=== PATIENT | male | born 2000 | race Caucasian/White ===

== ENCOUNTER 2023-02-07 01:51 | Day surgery (SDC) | payer OTHER ==
[2023-02-07 02:04] VITALS: BMI 31.0
[2023-02-07] MEDS ORDERED: ACETAMINOPHEN 1000 MG/100 ML BAG IVPB ONE ×2 (02:49→12:11)
[2023-02-07] MEDS ORDERED: ACETAMINOPHEN INJECTION 100 ML IVPB ONE ×2 (03:02→12:07)
[2023-02-07 03:25] LABS: BASO % 0.3 % (0-2.0); EOS % 0.4 % (0-4.5); HEMATOCRIT 41.8 % (35.4-49); HEMOGLOBIN 14.5 GM/dL (11.7-16.9); LYMPH % 12.8 % (8-40); MCH 27.7 pg (25.7-33.7); MCHC 34.8 g/dl (32.0-35.9); MEAN CELL VOLUME 79.5 fl (80-96); MEAN PLT VOLUME 7.2 fl (7.5-11.1); NEUT % 80.5 % (42.8-82.8); PLATELET COUNT 290 10^3/uL (134-434); RBC 5.26 M/mm3 (4.00-5.60); RDW 13.7 % (11.9-15.9); WHITE BLOOD COUNT 16.9 K/mm3 (4.0-10.0)
[2023-02-07 03:36] LABS: INR 1.05 (0.83-1.09); PROTHROMBIN TIME (PATIENT) 12.2 SEC (9.7-13.0)
[2023-02-07] MEDS ORDERED: morphine CARPU-JECT 4 MG/1 ML DISP.SYRIN IVPUSH ONE ×2 (03:37→05:49)
[2023-02-07 03:39] LABS: ACTIVATED PTT 31.4 SECONDS (25.2-36.5)
[2023-02-07 03:43] LABS: POTASSIUM 3.7 mmol/L (3.5-5.1)
[2023-02-07 03:46] LABS: BLOOD UREA NITROGEN 10.7 mg/dL (7-18)
[2023-02-07] MEDS ORDERED: ONDANSETRON 4 MG/2 ML VIAL ONE ×2 (03:48→10:11)
[2023-02-07] MEDS ORDERED: ONDANSETRON 4 MG/2 ML VIAL IVPUSH ONE (03:48)
[2023-02-07] MEDS ORDERED: morphine SULFATE 4 MG/ML VIAL ONE ×2 (03:48→05:48)
[2023-02-07 03:49] LABS: CREATININE 0.9 mg/dL (0.55-1.3)
[2023-02-07 03:50] LABS: BILIRUBIN,TOTAL 0.3 mg/dL (0.2-1)
[2023-02-07 03:51] LABS: TOT PROT 7.8 g/dl (6.4-8.2)
[2023-02-07] MEDS ORDERED: PIPERACILLIN/TAZOB 3.375 GM 3.375 GM in DEXTROSE 5%-WATER - 50 ML IVPB ONE (04:26)
[2023-02-07] MEDS ORDERED: PIPERACILLIN/TAZOB 3.375 GM 3.375 GM/50 ML BAG IVPB ONE (05:26)
[2023-02-07] MEDS ORDERED: LACTATED RINGERS SOLUTION 1,000 ML/1,000 ML INFUS.BAG IV SCH ×3 (07:45→11:53)
[2023-02-07] MEDS ORDERED: BUPIVACAINE HCL/PF 0.25% (2.5MG/ML) 10 ML VIAL ONE (09:27)
[2023-02-07] MEDS ORDERED: AMPICILLIN NA/SULBACTAM NA 3 GM VIAL ONE (09:35)
[2023-02-07] MEDS ORDERED: AMPICILLIN NA/SULBACTAM NA 3 GM in SODIUM CHLORIDE 100 ML IVPB SCH (10:00)
[2023-02-07] MEDS ORDERED: PROPOFOL 20 ML ONE (10:11)
[2023-02-07] MEDS ORDERED: ROCURONIUM BROMIDE 50 MG/5 ML SYRINGE ONE (10:11)
[2023-02-07] MEDS ORDERED: SUCCINYLCHOLINE CHLORIDE 200 MG/10 ML SYRINGE ONE (10:11)
[2023-02-07] MEDS ORDERED: KETOROLAC TROMETHAMINE 30 MG/1 ML VIAL ONE ×2 (10:11→11:38)
[2023-02-07] MEDS ORDERED: LIDOCAINE HCL/PF 2% SDV 5ML VIAL ONE (10:11)
[2023-02-07] MEDS ORDERED: DEXAMETHASONE SOD PHOSPHATE 4 MG/1 ML VIAL ONE (10:11)
[2023-02-07] MEDS ORDERED: MIDAZOLAM HCL 2 MG/2 ML SINGLE DOSE VIAL ONE (10:12)
[2023-02-07] MEDS ORDERED: BUPIVACAINE HCL/PF 0.25% (2.5MG/ML) 10 ML VIAL IJ ONE (11:13)
[2023-02-07] MEDS ORDERED: NEOSTIGMINE METHYLSULFATE 0.5 MG/1 ML - 10 ML MDV ONE (11:37)
[2023-02-07] MEDS ORDERED: GLYCOPYRROLATE 0.2 MG/1 ML VIAL ONE (11:38)
[2023-02-07] MEDS ORDERED: oxyCODONE HCL 5 MG TABLET PO PRN ×2 (11:53→11:54)
[2023-02-07] MEDS ORDERED: LACTATED RINGERS SOLUTION 1,000 ML IV SCH (12:15)
[2023-02-07] MEDS ORDERED: ONDANSETRON 4 MG/2 ML VIAL IVPUSH PRN (12:15)
[2023-02-07] MEDS ORDERED: ACETAMINOPHEN 1000 MG/100 ML BAG IVPB SCH (12:30)
[2023-02-07 15:20] VITALS: RESP 18
[2023-02-08] MEDS ORDERED: ACETAMINOPHEN 1000 MG/100 ML BAG IVPB ONE (09:12)
[2023-02-08] MEDS ORDERED: oxyCODONE HCL 5 MG TABLET PO PRN ×2 (09:14)
[2023-02-08 09:49] LABS: BASO % 0.3 % (0-2.0); EOS % 0.1 % (0-4.5); HEMATOCRIT 42.9 % (35.4-49); HEMOGLOBIN 14.3 GM/dL (11.7-16.9); LYMPH % 22.8 % (8-40); MCH 27.4 pg (25.7-33.7); MCHC 33.4 g/dl (32.0-35.9); MEAN PLT VOLUME 7.5 fl (7.5-11.1); MONO % 6.8 % (3.8-10.2); PLATELET COUNT 333 10^3/uL (134-434); RBC 5.23 M/mm3 (4.00-5.60); RDW 13.8 % (11.9-15.9); WHITE BLOOD COUNT 14.5 K/mm3 (4.0-10.0)
[2023-02-08 10:02] LABS: POTASSIUM 3.8 mmol/L (3.5-5.1)
[2023-02-08 10:07] LABS: BLOOD UREA NITROGEN 10.7 mg/dL (7-18); CALCIUM 9.5 mg/dL (8.5-10.1)
[2023-02-08] MEDS ORDERED: ACETAMINOPHEN 325 MG TABLET (FP) PO PRN (14:00)
[2023-02-08 14:42] VITALS: BP 110/86; PULSE 97; TEMP 98.2
== END 2023-02-08 15:33 | disposition home or self-care (01) ==
LOC: JER 01:51 → INTOOBSV 06:12 → JERBED 06:12 → UNDOADMOB 06:12 → JERBED 09:02 → JASUSAT 10:05 → SUATTDRO 10:05 → J5S 13:59 → JASUSAT 02-08 15:33
PROVIDERS: ATTEND Internal Medicine
PROC: 0DTJ4ZZ Resection of Appendix, Percutaneous Endoscopic Approach (ICD-10-PCS; principal; 2023-02-07 11:00)
DX: K35.80 Unspecified acute appendicitis (principal)
CPT/HCPCS: 36415; 74177-TC; 80048; 80053; 83690; 85025; 85610; 85730; 86850; 86900; 86901; 88304-TC; 93005; 93010; 94760; 99285-25; Q9967